=== PATIENT | male | born 1965 | race Caucasian/White ===

== ENCOUNTER → 2016-06-14 | Outpatient (CLI) | payer OTHER ==
[~2016-06-14] MED LIST: ASCO500C PO; ASPI325T PO; BACT400T PO; BACT800T5 PO; CLIN150 PO; CLIN1CAP5 PO; CLOP75 PO; DEXI30CA PO; DEXI30CA2 PO; LISI-363 PO; LISI-515 PO; METF500 PO; METF500T PO; METO100T PO; MULTTAB67 PO; PANT40TA3 PO; PLAV75TA29 PO; PROT40TA PO; RANI150 PO; RANI150T PO; REST30CA PO; SIMV40TA PO; TAB-TAB PO; TEMA30CA PO; VITA500T PO; ZOCO40TA PO
[2016-06-14 13:57] LABS: HEMATOCRIT 44.7 % (39.0-51.0); MEAN CELL VOLUME 86.1 FL (80.0-100.0); MEAN CORPUSCULAR HEMOGLOBIN 29.6 PG (27.0-34.0); MEAN CORPUSCULAR HGB CONC 34.4 % (32.0-36.0); PLATELET COUNT 329 TH/MM3 (150-450); RED BLOOD COUNT 5.19 MIL/MM3 (4.50-5.90); RED CELL DISTRIBUTION WIDTH 14.2 % (11.6-17.2); REVIEW FLAG FINAL; WHITE BLOOD COUNT 7.7 TH/MM3 (4.0-11.0)
[2016-06-14 14:22] LABS: BICARBONATE 31.4 MEQ/L (21.0-32.0); POTASSIUM 4.2 MEQ/L (3.5-5.1)
[2016-06-14 14:26] LABS: BETA HCG TUMOR MARKER 3 MIU/ML (0-5); LDH SERUM 184 U/L (87-241)
== END ==
LOC: CLAB 13:32
PROVIDERS: ATTEND Urology
DX: R19.00 Intra-abdominal and pelvic swelling, mass and lump, unspecified site (principal)
CPT/HCPCS: 36415; 80048; 82105; 83615; 84702; 85027

== ENCOUNTER → 2016-06-21 | Day surgery (SDC) | payer OTHER ==
[~2016-06-21] VITALS: Ht 175.3 cm; Wt 85.0 kg
[~2016-06-21] MED LIST changes: +*morphine SULFATE 8 MG/ML PERIprocedure ONLY ONE; +ACETAMINOPHEN 1000 MG/100 ML VIAL IV ONE; +ARTIFICIAL TEARS OPTH OINT 3.5 APPLIC/3.5 GM TUBO ONE; -ASCO500C PO; -BACT800T5 PO; +BUPIVACAINE HCL PF 0.25% 30 ML VIAL ONE; -CLIN150 PO; -CLOP75 PO; -DEXI30CA2 PO; +DO NOT ADM ANY ANTICOAGULANT DRUGS XX PRN; +FAMOTIDINE 20 MG/2 ML VIAL ONE; +GENTAMICIN/SOD CHL 80 MG/100 ML IV SCH; +INSULIN HUMAN REGULAR 1,000 UNITS/10 ML VIAL SQ PRN; +LACTATED RINGER'S 1000 ML INJ 1,000 ML IV ONE; +LACTATED RINGER'S 1000 ML IV SCH; -LISI-363 PO; -METF500 PO; +METOPROLOL TARTRATE 25 MG TAB PO PRN; +MIDAZOLAM HCL 2 MG/2 ML VIAL ONE; +ONDANSETRON HCL 4 MG/2 ML VIAL IV PUSH ONE; +PROPOFOL 200 MG/20 ML AMP IV ONE; -PROT40TA PO; -RANI150 PO; -REST30CA PO; +SODIUM CHLORID 0.9% 500 ML IV SCH; +SUGAMMADEX SODIUM 200 MG/2 ML VIAL IV PUSH ONE; -TAB-TAB PO; -ZOCO40TA PO; +ceFAZolin 1,000 MG/NS 100 ML IV SCH; +fentaNYL CITRATE 250 MCG/5 ML AMP ONE
[2016-06-21 15:06] VITALS: BP 128/87; PULSE 82; RESP 20; TEMP 97.8; O2SAT 95
[2016-06-21 19:40] VITALS: BP 125/75; PULSE 86; RESP 20; TEMP 96.8; O2SAT 95
--- NOTE | 2016-06-26 17:42 | MP ---
cc: PRESTON ARDON MD DATE OF SURGERY: 06/21/2016. PREOPERATIVE DIAGNOSIS: Bilateral testicular masses. 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 OPERATION: Bilateral inguinal orchiectomies. 2. Frozen section analysis. 3. Implantation of Coloplast 20 cc prosthetic testicles. SURGEON: Preston Ardon MD. ANESTHESIA: General. 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 Subsequent workup with ultrasound suggested almost total replacement of the right testicle and about one-third replacement of the left testicle with this mass. Alpha-fetoprotein, LDH and beta hCG were negative. CBCs were normal. He had a CT of the abdomen, pelvis and chest, all of which were negative for any evidence of metastatic disease and physical exam failed to reveal any evidence of supraclavicular, clavicular or inguinal lymphadenopathy. Options were discussed and we felt ultimately after consultation with several other urologists in our community as well as one of the professors from the [facility] to go ahead with the above-mentioned procedure. DESCRIPTION OF THE PROCEDURE IN DETAIL: He was given appropriate preoperative antibiotics, taken to the operating room, given a general anesthetic, a time-out was taken for identification purposes. He was then given a 10-minute shave prep, a 10-minute scrub prep and then draped out in a sterile fashion. A right lower quadrant inguinal incision was made and carried down to the external ring which was split open and the cord encircled. Significant caution was utilized because on this side of his anatomy the tubing going to the reservoir from his inflatable penile prosthesis was located. At no time did it appear that we entered into the pseudo-epithelialized capsule that has formed over the last six months around the tubing of the inflatable penile prosthesis. Once the cord was then encircled, we then used a cigarette Ady drain to cut off the blood supply to keep from proximal migration of any tumor cells. We bluntly and sharply dissected the testicle free of the gubernaculum from within the right hemiscrotum and carried it high up into the external oblique over the internal ring. At this point, we tied that off with 0 Prolene ligature just in case at some point in the future he requires a retroperitoneal lymph node dissection, we will know where our distal margin of resection is. We then submitted the entire testicle for frozen section analysis. This was significant because about one-third of the left testicle appeared to be replaced ultrasonically with the same density lesion. Dr. Braden Gonzalez and I discussed the pathology. It appeared to him to be a seminoma, or similar to it. This is a frozen section. So then a left lower quadrant inguinal incision was made and carried down in similar fashion and the left testicle was delivered up into the wound and we tied off the base of the cord again to prevent proximal migration of any tumor cells. At this time, I split the testicle open with the idea that we might possibly be able to enucleate something that was here or get a frozen section; however, this yellow glistening area appeared like a classic seminoma just to my naked eye. So I elected to remove the testicle in its entirety, again stick tying with #0 Prolene ligature high up in the inguinal canal at the level of the internal ring and allowed the cord to retract to its normal anatomic position. We then placed a Coloplast 20 cc saline-filled testicular prosthesis through the left inguinal canal on into the left hemiscrotum as we had done on the right side and we did a pursestring at the level of the penoscrotal junction so that the testicles will not migrate proximally. Then the external oblique was oversewn with 3-0 Vicryl ligature. The subcutaneous fat was then approximated and the skin closed with 4-0 Vicryl subcuticularly and Steri-Strips were then applied. A Hypafix dressing was applied to the scrotum. He tolerated the procedure well and was returned to the recovery room in stable condition. It should also be noted that the cephalad ends of the incision sites were injected with 0.25% plain Marcaine for his postoperative comfort and about 7 or 8 cc was injected into each cord so that he would have more postoperative comfort. He was returned to the recovery room in stable condition. MD SG Aleman/ELMER /6:00 PM /5:25 PM
== END | disposition home or self-care (01) ==
LOC: HSDC 14:33
DX: C62.92 Malignant neoplasm of left testis, unspecified whether descended or undescended (principal); C62.91 Malignant neoplasm of right testis, unspecified whether descended or undescended
CPT/HCPCS: 00926; 54530; 88305; 88309; 88331; J0131; J2250; J2270; J2405; J3010; J7120; L8699

== ENCOUNTER → 2016-11-05 | Outpatient (CLI) | payer OTHER ==
[~2016-11-05] MED LIST changes: -*morphine SULFATE 8 MG/ML PERIprocedure ONLY ONE; -ACETAMINOPHEN 1000 MG/100 ML VIAL IV ONE; -ARTIFICIAL TEARS OPTH OINT 3.5 APPLIC/3.5 GM TUBO ONE; -BUPIVACAINE HCL PF 0.25% 30 ML VIAL ONE; -CLIN1CAP5 PO; -DEXI30CA PO; -DO NOT ADM ANY ANTICOAGULANT DRUGS XX PRN; -FAMOTIDINE 20 MG/2 ML VIAL ONE; -GENTAMICIN/SOD CHL 80 MG/100 ML IV SCH; -INSULIN HUMAN REGULAR 1,000 UNITS/10 ML VIAL SQ PRN; -LACTATED RINGER'S 1000 ML INJ 1,000 ML IV ONE; -LACTATED RINGER'S 1000 ML IV SCH; -METOPROLOL TARTRATE 25 MG TAB PO PRN; -MIDAZOLAM HCL 2 MG/2 ML VIAL ONE; -ONDANSETRON HCL 4 MG/2 ML VIAL IV PUSH ONE; -PROPOFOL 200 MG/20 ML AMP IV ONE; -SODIUM CHLORID 0.9% 500 ML IV SCH; -SUGAMMADEX SODIUM 200 MG/2 ML VIAL IV PUSH ONE; -ceFAZolin 1,000 MG/NS 100 ML IV SCH; -fentaNYL CITRATE 250 MCG/5 ML AMP ONE
[2016-11-05 08:44] LABS: AUTOMATED NEUTROPHIL # 4.3 TH/MM3 (1.8-7.7); BASOPHIL % 0.4 % (0.0-2.0); EOSINOPHIL # 1.6 TH/MM3 (0-0.4); EOSINOPHIL % 18.4 % (0.0-4.0); HEMATOCRIT 47.6 % (39.0-51.0); HEMO FLAGS DIFF FINAL; LYMPH % 25.5 % (9.0-44.0); LYMPHOCYTE # 2.2 TH/MM3 (1.0-4.8); MEAN CELL VOLUME 87.5 FL (80.0-100.0); MEAN CORPUSCULAR HEMOGLOBIN 29.5 PG (27.0-34.0); MEAN CORPUSCULAR HGB CONC 33.7 % (32.0-36.0); NEUT % 48.7 % (16.0-70.0); PLATELET COUNT 249 TH/MM3 (150-450); RED BLOOD COUNT 5.44 MIL/MM3 (4.50-5.90); RED CELL DISTRIBUTION WIDTH 13.5 % (11.6-17.2); WHITE BLOOD COUNT 8.8 TH/MM3 (4.0-11.0)
[2016-11-05 09:01] LABS: ANION GAP 6 MEQ/L (5-15); AST (GOT) 17 U/L (15-37); BICARBONATE 31.7 MEQ/L (21.0-32.0); BLOOD UREA NITROGEN 22 MG/DL (7-18); CHLORIDE 100 MEQ/L (98-107); GLOMERULAR FILTRATION RATE 65 ML/MIN (>89); GLUCOSE,FASTING 149 MG/DL (74-99); POTASSIUM 4.8 MEQ/L (3.5-5.1); SODIUM (NA) 138 MEQ/L (136-145)
[2016-11-05 09:02] LABS: ALT (GPT) 44 U/L (12-78)
[2016-11-05 09:04] LABS: ALKALINE PHOSPHATASE 59 U/L (45-117); HDL CHOLESTEROL 29.5 MG/DL (40.0-60.0); LDL CHOLESTEROL 36 MG/DL (0-99); TOTAL BILIRUBIN ADULT 0.7 MG/DL (0.2-1.0)
[2016-11-05 15:47] LABS: HEMOGLOBIN A1a 1.2 %; HEMOGLOBIN A1b 0.9 %; HEMOGLOBIN Ao 82.8 %; HEMOGLOBIN F 1.6 %; HEMOGLOBIN LA1C 2.2 %
== END ==
LOC: CLAB 08:12
PROVIDERS: ATTEND Family Medicine
DX: E78.5 Hyperlipidemia, unspecified (principal); I10 Essential (primary) hypertension; E11.9 Type 2 diabetes mellitus without complications; G47.00 Insomnia, unspecified; I25.10 Atherosclerotic heart disease of native coronary artery without angina pectoris; C62.91 Malignant neoplasm of right testis, unspecified whether descended or undescended; N40.1 Benign prostatic hyperplasia with lower urinary tract symptoms; Z95.828 Presence of other vascular implants and grafts
CPT/HCPCS: 36415; 80053; 80061; 83036; 84153; 84154; 85025

== ENCOUNTER → 2017-05-26 | Outpatient (CLI) | payer OTHER ==
[~2017-05-26] MED LIST changes: +ASPI-183 PO; -ASPI325T PO
[2017-05-26 16:04] LABS: HEMATOCRIT 46.2 % (39.0-51.0); HEMOGLOBIN 15.5 GM/DL (13.0-17.0); MEAN CELL VOLUME 86.3 FL (80.0-100.0); MEAN CORPUSCULAR HEMOGLOBIN 28.9 PG (27.0-34.0); MEAN CORPUSCULAR HGB CONC 33.5 % (32.0-36.0); MEAN PLATELET VOLUME 7.9 FL (7.0-11.0); PLATELET COUNT 298 TH/MM3 (150-450); RED BLOOD COUNT 5.35 MIL/MM3 (4.50-5.90); RED CELL DISTRIBUTION WIDTH 13.7 % (11.6-17.2); WHITE BLOOD COUNT 8.2 TH/MM3 (4.0-11.0)
[2017-05-26 16:35] LABS: ALBUMIN 3.9 GM/DL (3.4-5.0); AST (GOT) 24 U/L (15-37); BICARBONATE 26.7 MEQ/L (21.0-32.0); BLOOD UREA NITROGEN 20 MG/DL (7-18); CALCIUM 9.5 MG/DL (8.5-10.1); CHLORIDE 100 MEQ/L (98-107); CHOLESTEROL 99 MG/DL (120-200); CREATININE 0.93 MG/DL (0.60-1.30); GLOMERULAR FILTRATION RATE 85 ML/MIN (>89); GLUCOSE,FASTING 104 MG/DL (74-99); SODIUM (NA) 135 MEQ/L (136-145)
[2017-05-26 16:41] LABS: ALKALINE PHOSPHATASE 55 U/L (45-117); ALT (GPT) 43 U/L (12-78); CHOLESTEROL/ HDL RATIO 2.56 RATIO; FREE T4 0.92 NG/DL (0.76-1.46); HDL CHOLESTEROL 38.6 MG/DL (40.0-60.0); LDL CHOLESTEROL 42 MG/DL (0-99); TOTAL BILIRUBIN ADULT 0.9 MG/DL (0.2-1.0); TOTAL PROTEIN 7.7 GM/DL (6.4-8.2); TRIGLYCERIDES 93 MG/DL (42-150)
[2017-05-26 17:01] LABS: HEMOGLOBIN A1C 7.2 % (4.3-6.0)
[2017-05-27 05:07] LABS: FREE PSA/PSA RATIO 0.13 ratio
== END ==
LOC: CLAB 15:23
PROVIDERS: ATTEND Family Medicine
DX: I10 Essential (primary) hypertension (principal); E78.5 Hyperlipidemia, unspecified; E11.9 Type 2 diabetes mellitus without complications; G47.00 Insomnia, unspecified; I25.10 Atherosclerotic heart disease of native coronary artery without angina pectoris; C62.91 Malignant neoplasm of right testis, unspecified whether descended or undescended; N40.1 Benign prostatic hyperplasia with lower urinary tract symptoms; Z95.828 Presence of other vascular implants and grafts
CPT/HCPCS: 36415; 80053; 80061; 83036; 84153; 84154; 84439; 84443; 85027